=== PATIENT | male | born 1945 | race Two or more races ===

== ENCOUNTER 2020-06-10 10:43 | Outpatient (CLI) | payer MEDICARE | END 2020-06-10 23:59 | disposition home or self-care (01) | LOC: WOU 10:43 | PROVIDERS: ATTEND Specialist | DX: T25.221A Burn of second degree of right foot, initial encounter (principal); T31.0 Burns involving less than 10% of body surface; X19.XXXA Contact with other heat and hot substances, initial encounter; Y92.89 Other specified places as the place of occurrence of the external cause; I87.311 Chronic venous hypertension (idiopathic) with ulcer of right lower extremity; L97.312 Non-pressure chronic ulcer of right ankle with fat layer exposed; Z79.01 Long term (current) use of anticoagulants; Z96.82 Presence of neurostimulator | CPT/HCPCS: A6209; G0463 ==

== ENCOUNTER 2020-10-14 11:05 | Outpatient (CLI) | payer MEDICARE ==
[2020-10-14] MEDS ORDERED: LIDOCAINE SOLN 4% 50 ML BOTTLE ONE (12:17)
[2020-10-14] MEDS ORDERED: SILVER SULFADIAZINE CREAM 25 GM TUBE ONE (12:17)
== END 2020-10-14 23:59 | disposition home or self-care (01) ==
LOC: WOU 11:05
PROVIDERS: ATTEND Specialist
DX: G62.89 Other specified polyneuropathies (principal); L97.512 Non-pressure chronic ulcer of other part of right foot with fat layer exposed; L03.031 Cellulitis of right toe; Z79.01 Long term (current) use of anticoagulants; Z79.899 Other long term (current) drug therapy
CPT/HCPCS: 11042; A6209

== ENCOUNTER 2021-04-14 08:00 | Outpatient (CLI) | payer MEDICARE | END 2021-04-14 23:59 | disposition home or self-care (01) | LOC: WOU 08:00 | PROVIDERS: ATTEND Specialist | DX: G90.09 Other idiopathic peripheral autonomic neuropathy (principal); L97.512 Non-pressure chronic ulcer of other part of right foot with fat layer exposed; Z79.01 Long term (current) use of anticoagulants | CPT/HCPCS: 11042 ==

== ENCOUNTER 2021-05-26 10:40 | Outpatient (CLI) | payer MEDICARE | END 2021-05-26 23:59 | disposition home or self-care (01) | LOC: WOU 10:40 | PROVIDERS: ATTEND Specialist | DX: G90.09 Other idiopathic peripheral autonomic neuropathy (principal); L97.512 Non-pressure chronic ulcer of other part of right foot with fat layer exposed; Z79.01 Long term (current) use of anticoagulants; Z79.899 Other long term (current) drug therapy | CPT/HCPCS: 11042 ==

== ENCOUNTER 2021-06-30 09:15 | Outpatient (CLI) | payer MEDICARE | END 2021-06-30 23:59 | disposition home or self-care (01) | LOC: WOU 09:15 | PROVIDERS: ATTEND Specialist | DX: L97.512 Non-pressure chronic ulcer of other part of right foot with fat layer exposed (principal); G90.09 Other idiopathic peripheral autonomic neuropathy; L84 Corns and callosities; I25.2 Old myocardial infarction; Z86.73 Personal history of transient ischemic attack (TIA), and cerebral infarction without residual deficits; Z80.9 Family history of malignant neoplasm, unspecified; Z79.01 Long term (current) use of anticoagulants; Z79.899 Other long term (current) drug therapy; M20.21 Hallux rigidus, right foot | CPT/HCPCS: 11042 ==

== ENCOUNTER 2021-06-30 13:18 | Outpatient (CLI) | payer MEDICARE ==
[2021-06-30 15:47] LABS: BASOPHILS % (AUTO) 0.8 % (0.0-2.0); EOSINOPHILS % (AUTO) 6.3 % (0.0-6.0); HEMATOCRIT 40 % (39-51); HEMOGLOBIN 13.2 g/dL (13.5-17.5); LYMPHOCYTES # (AUTO) 1.8 K/uL (0.8-4.8); LYMPHOCYTES % (AUTO) 32.4 % (20.0-44.0); MEAN CORPUSCULAR HGB CONC 34 g/dl (31.0-36.0); MEAN CORPUSCULAR VOLUME 105 fL (80-96); MONOCYTES # (AUTO) 0.6 K/uL (0.1-1.30); MONOCYTES % (AUTO) 11.5 % (2.0-12.0); NEUTROPHILS # (AUTO) 2.7 K/uL (1.8-8.9); PLATELET COUNT (AUTO) 150 K/uL (150-450); RED BLOOD CELL COUNT(AUTO) 3.76 MIL/uL (4.5-6.0); WHITE BLOOD COUNT (AUTO) 5.5 K/uL (4.3-11.0)
== END 2021-06-30 23:59 | disposition home or self-care (01) ==
LOC: WOU 13:18
PROVIDERS: ATTEND Podiatrist Foot & Ankle Surgery
DX: L97.512 Non-pressure chronic ulcer of other part of right foot with fat layer exposed (principal); G90.09 Other idiopathic peripheral autonomic neuropathy; Z86.73 Personal history of transient ischemic attack (TIA), and cerebral infarction without residual deficits; I25.2 Old myocardial infarction; Z85.9 Personal history of malignant neoplasm, unspecified; M20.21 Hallux rigidus, right foot; Z79.01 Long term (current) use of anticoagulants; Z79.899 Other long term (current) drug therapy
CPT/HCPCS: 11042; 36415; 85025-TC; 85652-TC; 86140-TC

== ENCOUNTER 2021-07-28 10:58 | Outpatient (CLI) | payer MEDICARE | END 2021-07-28 23:59 | disposition home or self-care (01) | LOC: WOU 10:58 | PROVIDERS: ATTEND Specialist | DX: G90.09 Other idiopathic peripheral autonomic neuropathy (principal); L97.512 Non-pressure chronic ulcer of other part of right foot with fat layer exposed; M20.31 Hallux varus (acquired), right foot; M20.21 Hallux rigidus, right foot; L84 Corns and callosities | CPT/HCPCS: 11042 ==

== ENCOUNTER 2021-08-04 10:30 | Outpatient (CLI) | payer MEDICARE ==
[2021-08-04] MEDS ORDERED: LIDOCAINE 2% JEL 5 ML TUBE ONE (10:32)
[2021-08-04] MEDS ORDERED: Z GUARD REMEDY 2 OZ OINT TP ONE (11:36)
[2021-08-04] MEDS ORDERED: HYDROCORTISONE 1% CREAM 28.35 GM TUBE TP ONE (11:36)
== END 2021-08-04 23:59 | disposition home or self-care (01) ==
LOC: WOU 10:30
PROVIDERS: ATTEND Specialist
DX: G90.09 Other idiopathic peripheral autonomic neuropathy (principal); L97.512 Non-pressure chronic ulcer of other part of right foot with fat layer exposed; M20.31 Hallux varus (acquired), right foot; M20.21 Hallux rigidus, right foot; Z79.02 Long term (current) use of antithrombotics/antiplatelets; Z79.01 Long term (current) use of anticoagulants; Z79.899 Other long term (current) drug therapy
CPT/HCPCS: 11042

== ENCOUNTER 2021-08-18 08:40 | Outpatient (CLI) | payer MEDICARE | END 2021-08-18 23:59 | disposition home or self-care (01) | LOC: WOU 08:40 | PROVIDERS: ATTEND Specialist | DX: G90.09 Other idiopathic peripheral autonomic neuropathy (principal); M20.31 Hallux varus (acquired), right foot; M20.21 Hallux rigidus, right foot; Z79.01 Long term (current) use of anticoagulants; Z79.899 Other long term (current) drug therapy | CPT/HCPCS: G0463 ==

== ENCOUNTER 2021-09-22 13:40 | Outpatient (CLI) | payer MEDICARE | END 2021-09-22 23:59 | disposition home or self-care (01) | LOC: WOU 13:40 | PROVIDERS: ATTEND Podiatrist Foot & Ankle Surgery | DX: G90.09 Other idiopathic peripheral autonomic neuropathy (principal); L97.518 Non-pressure chronic ulcer of other part of right foot with other specified severity; M20.31 Hallux varus (acquired), right foot; M20.21 Hallux rigidus, right foot; Z79.01 Long term (current) use of anticoagulants; Z79.899 Other long term (current) drug therapy ==

== ENCOUNTER 2021-09-24 09:15 | Outpatient (CLI) | payer MEDICARE | END 2021-09-24 23:59 | disposition home or self-care (01) | LOC: WOU 09:15 | PROVIDERS: ATTEND Podiatrist Foot & Ankle Surgery | DX: G90.09 Other idiopathic peripheral autonomic neuropathy (principal); L97.512 Non-pressure chronic ulcer of other part of right foot with fat layer exposed; M20.21 Hallux rigidus, right foot; M20.31 Hallux varus (acquired), right foot; S90.811A Abrasion, right foot, initial encounter; X58.XXXA Exposure to other specified factors, initial encounter; Y92.89 Other specified places as the place of occurrence of the external cause | CPT/HCPCS: 11042 ==

== ENCOUNTER 2021-09-29 13:35 | Outpatient (CLI) | payer MEDICARE | END 2021-09-29 23:59 | disposition home or self-care (01) | LOC: WOU 13:35 | PROVIDERS: ATTEND Podiatrist Foot & Ankle Surgery | DX: G90.09 Other idiopathic peripheral autonomic neuropathy (principal); M20.31 Hallux varus (acquired), right foot; M20.21 Hallux rigidus, right foot; Z79.01 Long term (current) use of anticoagulants; Z79.899 Other long term (current) drug therapy; S90.811D Abrasion, right foot, subsequent encounter; X58.XXXD Exposure to other specified factors, subsequent encounter | CPT/HCPCS: 11042 ==

== ENCOUNTER 2021-10-06 13:50 | Outpatient (CLI) | payer MEDICARE ==
[~2021-10-06 13:50] MED LIST: DEXAMETHASONE SOLN 5 MG/5 ML UDC ONE
== END 2021-10-06 23:59 | disposition home or self-care (01) ==
LOC: WOU 13:50
PROVIDERS: ATTEND Podiatrist Foot & Ankle Surgery
DX: G90.09 Other idiopathic peripheral autonomic neuropathy (principal); L97.512 Non-pressure chronic ulcer of other part of right foot with fat layer exposed; S90.811D Abrasion, right foot, subsequent encounter; X58.XXXD Exposure to other specified factors, subsequent encounter; M20.31 Hallux varus (acquired), right foot; M20.21 Hallux rigidus, right foot; M79.671 Pain in right foot; Z79.01 Long term (current) use of anticoagulants; Z79.899 Other long term (current) drug therapy
CPT/HCPCS: 11042; J8540

== ENCOUNTER 2021-10-13 13:15 | Outpatient (CLI) | payer MEDICARE | END 2021-10-13 23:59 | disposition home or self-care (01) | LOC: WOU 13:15 | PROVIDERS: ATTEND Podiatrist Foot & Ankle Surgery | DX: G90.09 Other idiopathic peripheral autonomic neuropathy (principal); L97.512 Non-pressure chronic ulcer of other part of right foot with fat layer exposed; S90.811D Abrasion, right foot, subsequent encounter; X58.XXXD Exposure to other specified factors, subsequent encounter; M20.31 Hallux varus (acquired), right foot; M20.21 Hallux rigidus, right foot; M79.671 Pain in right foot; Z79.01 Long term (current) use of anticoagulants; Z79.899 Other long term (current) drug therapy | CPT/HCPCS: 11042 ==

== ENCOUNTER 2021-10-20 13:45 | Outpatient (CLI) | payer MEDICARE | END 2021-10-20 23:59 | disposition home or self-care (01) | LOC: WOU 13:45 | PROVIDERS: ATTEND Podiatrist Foot & Ankle Surgery | DX: G90.09 Other idiopathic peripheral autonomic neuropathy (principal); L97.512 Non-pressure chronic ulcer of other part of right foot with fat layer exposed; M20.31 Hallux varus (acquired), right foot; M20.21 Hallux rigidus, right foot; M79.671 Pain in right foot; Z79.01 Long term (current) use of anticoagulants; Z79.899 Other long term (current) drug therapy | CPT/HCPCS: 11042; 87102-TC ==

== ENCOUNTER 2021-11-24 13:46 | Outpatient (CLI) | payer MEDICARE | END 2021-11-24 23:59 | disposition home or self-care (01) | LOC: WOU 13:46 | PROVIDERS: ATTEND Podiatrist Foot & Ankle Surgery | DX: G90.09 Other idiopathic peripheral autonomic neuropathy (principal); M20.21 Hallux rigidus, right foot; M20.31 Hallux varus (acquired), right foot; B35.1 Tinea unguium; B35.3 Tinea pedis; Z79.01 Long term (current) use of anticoagulants; Z79.899 Other long term (current) drug therapy | CPT/HCPCS: G0463 ==

== ENCOUNTER 2022-05-13 10:00 | Outpatient (CLI) | payer MEDICARE | END 2022-05-13 23:59 | disposition home or self-care (01) | LOC: WOU 10:00 | PROVIDERS: ATTEND Podiatrist Foot & Ankle Surgery | DX: M21.622 Bunionette of left foot (principal); M21.621 Bunionette of right foot; M20.31 Hallux varus (acquired), right foot; M20.21 Hallux rigidus, right foot; L84 Corns and callosities; B35.1 Tinea unguium; B35.3 Tinea pedis; M79.671 Pain in right foot; Z79.01 Long term (current) use of anticoagulants; Z79.899 Other long term (current) drug therapy | CPT/HCPCS: G0463 ==

== ENCOUNTER 2022-08-05 11:01 | Outpatient (CLI) | payer MEDICARE | END 2022-08-05 23:59 | disposition home or self-care (01) | LOC: WOU 11:01 | PROVIDERS: ATTEND Podiatrist Foot & Ankle Surgery | DX: L84 Corns and callosities (principal); M20.31 Hallux varus (acquired), right foot; M20.21 Hallux rigidus, right foot; G90.09 Other idiopathic peripheral autonomic neuropathy; M35.1 Other overlap syndromes; M35.3 Polymyalgia rheumatica; M21.622 Bunionette of left foot; M21.621 Bunionette of right foot; M79.671 Pain in right foot; Z79.01 Long term (current) use of anticoagulants; Z79.899 Other long term (current) drug therapy | CPT/HCPCS: G0463 ==

== ENCOUNTER 2022-09-14 12:45 | Outpatient (CLI) | payer MEDICARE ==
[2022-09-14] MEDS ORDERED: ETHYL CHLORIDE SPRAY 1 EA BOTTLE TP ONE (13:30)
[2022-09-14] MEDS ORDERED: DEXAMETHASONE SOD PHOSPHATE 4 MG/ML VIAL IV ONE (13:30)
[2022-09-14] MEDS ORDERED: LIDOCAINE HCL/MPF 1% 30 ML VIAL IJ ONE (13:34)
== END 2022-09-14 23:59 | disposition home or self-care (01) ==
LOC: WOU 12:45
PROVIDERS: ATTEND Podiatrist Foot & Ankle Surgery
DX: M71.572 Other bursitis, not elsewhere classified, left ankle and foot (principal); G90.09 Other idiopathic peripheral autonomic neuropathy; L84 Corns and callosities; M20.31 Hallux varus (acquired), right foot; M20.21 Hallux rigidus, right foot; M21.622 Bunionette of left foot; M21.621 Bunionette of right foot; M79.672 Pain in left foot; B35.1 Tinea unguium; B35.3 Tinea pedis; Z79.01 Long term (current) use of anticoagulants; Z79.899 Other long term (current) drug therapy
CPT/HCPCS: 20600; J1100; J3490

== ENCOUNTER 2022-10-18 10:56 | Outpatient (CLI) | payer MEDICARE | END 2022-10-18 23:59 | disposition home or self-care (01) | LOC: WOU 10:56 | PROVIDERS: ATTEND Podiatrist Foot & Ankle Surgery | DX: M21.622 Bunionette of left foot (principal); M21.621 Bunionette of right foot; M71.572 Other bursitis, not elsewhere classified, left ankle and foot; M20.31 Hallux varus (acquired), right foot; M20.21 Hallux rigidus, right foot; G90.09 Other idiopathic peripheral autonomic neuropathy; B35.1 Tinea unguium; B35.3 Tinea pedis; L84 Corns and callosities; M79.672 Pain in left foot; M79.671 Pain in right foot | CPT/HCPCS: G0463 ==

== ENCOUNTER 2022-11-15 11:14 | Outpatient (CLI) | payer MEDICARE ==
[2022-11-15 11:49] LABS: BASOPHILS % (AUTO) 0.5 % (0.0-2.0); EOSINOPHILS % (AUTO) 1.4 % (0.0-6.0); HEMATOCRIT 42 % (39-51); HEMOGLOBIN 13.6 g/dL (13.5-17.5); LYMPHOCYTES # (AUTO) 1.8 K/uL (0.8-4.8); LYMPHOCYTES % (AUTO) 29.8 % (20.0-44.0); MEAN CORPUSCULAR HGB CONC 33 g/dl (31.0-36.0); MEAN CORPUSCULAR VOLUME 102 fL (80-96); MONOCYTES # (AUTO) 0.6 K/uL (0.1-1.30); MONOCYTES % (AUTO) 10.8 % (2.0-12.0); NEUTROPHILS # (AUTO) 3.4 K/uL (1.8-8.9); NEUTROPHILS % (AUTO) 57.5 % (43.0-81.0); PLATELET COUNT (AUTO) 155 K/uL (150-450); RED BLOOD CELL COUNT(AUTO) 4.06 MIL/uL (4.5-6.0); WHITE BLOOD COUNT (AUTO) 5.9 K/uL (4.3-11.0)
[2022-11-15 11:58] LABS: CALCIUM, SERUM 8.9 mg/dL (8.5-10.1); CREATININE 1.1 mg/dL (0.6-1.3); POTASSIUM 4.5 mmol/L (3.5-5.1)
== END 2022-11-15 23:59 | disposition home or self-care (01) ==
LOC: LAB 11:14
PROVIDERS: ATTEND Podiatrist Foot & Ankle Surgery
DX: Z01.818 Encounter for other preprocedural examination (principal); M21.622 Bunionette of left foot; J98.11 Atelectasis
CPT/HCPCS: 36415; 71045-TC; 80048-TC; 85025-TC; 85730-TC

== ENCOUNTER 2022-11-15 11:28 | Outpatient (CLI) | payer MEDICARE | END 2022-11-15 23:59 | disposition home or self-care (01) | LOC: WOU 11:28 | PROVIDERS: ATTEND Podiatrist Foot & Ankle Surgery | DX: M21.622 Bunionette of left foot (principal); M21.621 Bunionette of right foot; M20.31 Hallux varus (acquired), right foot; M20.21 Hallux rigidus, right foot; M71.572 Other bursitis, not elsewhere classified, left ankle and foot; G90.09 Other idiopathic peripheral autonomic neuropathy; B35.3 Tinea pedis; B35.1 Tinea unguium; L84 Corns and callosities | CPT/HCPCS: G0463 ==

== ENCOUNTER 2022-11-18 10:56 | Outpatient (CLI) | payer MEDICARE | END 2022-11-18 23:59 | disposition home or self-care (01) | LOC: LAB 10:56 | PROVIDERS: ATTEND Podiatrist Foot & Ankle Surgery | DX: Z01.812 Encounter for preprocedural laboratory examination (principal); Z20.822 Contact with and (suspected) exposure to COVID-19 | CPT/HCPCS: U0003; C9803 ==

== ENCOUNTER 2022-11-22 06:37 | Day surgery (SDC) | payer MEDICARE ==
[2022-11-22] MEDS ORDERED: FENTANYL PF 250MCG/5ML AMPUL ONE (07:18)
[2022-11-22] MEDS ORDERED: FAMOTIDINE/PF INJ 20 MG/2 ML VIAL IV ONE (07:19)
[2022-11-22] MEDS ORDERED: LIDOCAINE HCL/MPF 1% 30 ML VIAL IJ ONE (07:30)
[2022-11-22] MEDS ORDERED: BUPIVACAINE 0.25% 75 MG/30 ML VIAL ONE (07:30)
[2022-11-22] MEDS ORDERED: MEPERIDINE25 MG SYR 25 MG/ML VIAL ONE ×3 (08:35→09:43)
[2022-11-22] MEDS ORDERED: FENTANYL PF 100MCG/2ML AMPUL ONE (09:49)
== END 2022-11-22 13:00 | disposition home or self-care (01) ==
LOC: DS 06:37
PROVIDERS: ATTEND Podiatrist Foot & Ankle Surgery
DX: M79.672 Pain in left foot (principal); M77.52 Other enthesopathy of left foot and ankle; M21.622 Bunionette of left foot; L97.528 Non-pressure chronic ulcer of other part of left foot with other specified severity
CPT/HCPCS: 28110; 88311; 88304; J0690; J2704; J3010 ×2; J3490 ×4; J2765; J2405; J7030; J2175 ×3

== ENCOUNTER 2022-11-25 10:55 | Outpatient (CLI) | payer MEDICARE | END 2022-11-25 23:59 | disposition home or self-care (01) | LOC: WOU 10:55 | PROVIDERS: ATTEND Podiatrist Foot & Ankle Surgery | DX: Z47.89 Encounter for other orthopedic aftercare (principal); S90.32XA Contusion of left foot, initial encounter; W22.03XA Walked into furniture, initial encounter; Y92.89 Other specified places as the place of occurrence of the external cause; G90.09 Other idiopathic peripheral autonomic neuropathy; B35.1 Tinea unguium; M21.622 Bunionette of left foot; M71.572 Other bursitis, not elsewhere classified, left ankle and foot | CPT/HCPCS: G0463 ==

== ENCOUNTER → 2022-11-29 | Outpatient (CLI) | payer MEDICARE | END | disposition home or self-care (01) | LOC: WOU 10:17 | PROVIDERS: ATTEND Podiatrist Foot & Ankle Surgery | DX: Z48.89 Encounter for other specified surgical aftercare (principal); S90.32XD Contusion of left foot, subsequent encounter; W22.03XD Walked into furniture, subsequent encounter; G90.09 Other idiopathic peripheral autonomic neuropathy; B35.1 Tinea unguium; M71.572 Other bursitis, not elsewhere classified, left ankle and foot | CPT/HCPCS: G0463 ==

== ENCOUNTER 2022-12-06 11:19 | Outpatient (CLI) | payer MEDICARE | END 2022-12-06 23:59 | disposition home or self-care (01) | LOC: WOU 11:19 | PROVIDERS: ATTEND Podiatrist Foot & Ankle Surgery | DX: Z48.89 Encounter for other specified surgical aftercare (principal); G90.09 Other idiopathic peripheral autonomic neuropathy; M71.572 Other bursitis, not elsewhere classified, left ankle and foot; B35.1 Tinea unguium | CPT/HCPCS: G0463 ==

== ENCOUNTER 2023-01-03 10:27 | Outpatient (CLI) | payer MEDICARE | END 2023-01-03 23:59 | disposition home or self-care (01) | LOC: WOU 10:27 | PROVIDERS: ATTEND Podiatrist Foot & Ankle Surgery | DX: L60.3 Nail dystrophy (principal); L60.2 Onychogryphosis; B35.1 Tinea unguium; M71.572 Other bursitis, not elsewhere classified, left ankle and foot; G90.09 Other idiopathic peripheral autonomic neuropathy; M21.622 Bunionette of left foot | CPT/HCPCS: G0463 ==